=== PATIENT | female | born 1945 | race Caucasian/White ===

== ENCOUNTER 2017-05-18 08:02 | Emergency (ER) | payer MEDICARE ==
[~2017-05-18] VITALS: Ht 170.2 cm; Wt 59.6 kg
[~2017-05-18 08:02] MED LIST: ASPI81CT89 PO; ATEN50TA2 PO; CARV12.5 PO; DIVA250E1 PO; FURO-572 PO; OXYC5TAB4 PO; SIMV10TA6 PO; SYN.05 PO; TRAZ-289 PO; VALP-22 PO; VOL25 PO; [UNRECOGNIZED DRUG - CODE] TD
[2017-05-18 08:45] VITALS: BP 122/87
--- NOTE | 2017-05-18 08:54 | NUR ---
PATIENT TO OF 1
--- NOTE | 2017-05-18 09:00 | NUR ---
PATIENT PRESENTS TO ED WITH C/O BURNING URINATION 02/24 WITH LOWER MID ABD PAIN X 1 MONTH;HX OF PACEMAKER, RT SHOULDER SURGERY;RX OF CLONIDINE, DEVALPROEX, MAPAP, SENNA, BENAZEPRIL, AMIODARON, PROAIR, DIVALPROEX SODIUM, TRAMADOL, LORAZEPAM, TRAZODONE, RANITIDINE, MELOXICAM, CARVEDILOL, SIMVASTATIN.DENIES N/V/D; SKIN IS PINK/WARM/DRY; AAOX4 WITH EVEN AND STEADY GAIT; LUNGS CLEAR BL; HR EVEN AND REGULAR; PT DENIES ANY FEVER, CP, SOB, OR COUGH AT THIS TIME; PATIENT POSITIONED FOR COMFORT; HOB ELEVATED; BEDRAILS UP X2; BED DOWN. ER MD MADE AWARE OF PT STATUS.
[2017-05-18 09:32] VITALS: BP 118/74
--- NOTE | 2017-05-18 09:32 | NUR ---
Patient discharged with v/s stable. Written and verbal after care instructions given and explained. Patient alert, oriented and verbalized understanding of instructions. Ambulatory with steady gait. All questions addressed prior to discharge. ID band removed. Patient advised to follow up with PMD. Rx of CIPRO AND PYRIDIUM given. Patient educated on indication of medication including possible reaction and side effects. Opportunity to ask questions provided and answered.
== END 2017-05-18 09:32 | disposition home or self-care (01) ==
LOC: MED 08:02
DX: N39.0 Urinary tract infection, site not specified (principal); Z95.0 Presence of cardiac pacemaker
CPT/HCPCS: 81002; 99283

== ENCOUNTER 2019-07-24 21:49 | Emergency (ER) | payer MEDICARE ==
[~2019-07-24] VITALS: Ht 175.3 cm; Wt 61.2 kg
[~2019-07-24 21:49] MED LIST changes: +ASPI-1822 PO; -ASPI81CT89 PO; -SIMV10TA6 PO; +SIMV10TA92 PO; -TRAZ-289 PO; +TRAZ-471 PO
--- NOTE | 2019-07-24 21:52 | NUR ---
PT SKYLAR BLS. TAKEN TO BED 10
[2019-07-24 21:56] VITALS: BP 148/55
--- NOTE | 2019-07-24 22:00 | NUR ---
PT BIBA S/P FALL +LOC. SMALL LAC TO R EYEBROW, BRUISING ON R ARM. C/O DIZZINESS AND LIGHTHEADEDNESS. DENIES BASURTO. C/O CHRONIC PAIN TO R HIP AND BACK. DENIES NEW PAIN AFTER FALL. PERRLA. WEAK UPON STANDING. VSS. PLACED ON BEDPAN ENCOURAGED TO URINATE. WILL CONTINUE TO MONITOR.
--- NOTE | 2019-07-24 22:46 | NUR ---
Dr. Dewitt examining patient.
--- NOTE | 2019-07-24 23:38 | NUR ---
PT TAKEN TO CT
--- NOTE | 2019-07-25 00:04 | NUR ---
PT RETURN FROM CT
--- NOTE | 2019-07-25 00:30 | NUR ---
PT CLEARED TO BE DISCHARGED BY MD; TRANSPORTATION UNAVAILABLE TO HER FACILITY UNTIL 1030AM. WILL CONTINUE TO MONITOR.
--- NOTE | 2019-07-25 02:30 | NUR ---
PT URINATED IN BEDPAN. VSS. NO NEEDS AT THIS TIME. WILL CONTINUE TO MONITOR.
--- NOTE | 2019-07-25 04:30 | NUR ---
PT REQUESTED TO URINATE IN BEDPAN. VSS. NO NEEDS AT THIS TIME. WILL CONTINUE TO MONITOR.
--- NOTE | 2019-07-25 06:00 | NUR ---
PT REQUESTED TO URINATE WITH BEDPAN. VSS. NO NEEDS AT THIS TIME. WILL CONTINUE TO MONTIOR.
--- NOTE | 2019-07-25 07:12 | NUR ---
ASSUMED CARE OF PT FROM MANJIT GARCIA.
[2019-07-25 10:29] VITALS: BP 162/74
--- NOTE | 2019-07-25 10:29 | NUR ---
Patient discharged with v/s stable. Written and verbal after care instructions given and explained. Patient verbalized understanding. Wheel Chair Assisted with to assisted. All questions addressed prior to discharge. Advised to follow up with PMD.
== END 2019-07-25 10:11 ==
LOC: MED 21:49
DX: M25.511 Pain in right shoulder (principal); R03.0 Elevated blood-pressure reading, without diagnosis of hypertension; F17.210 Nicotine dependence, cigarettes, uncomplicated; Z95.0 Presence of cardiac pacemaker; Z79.899 Other long term (current) drug therapy; Z79.82 Long term (current) use of aspirin; W19.XXXA Unspecified fall, initial encounter; Y93.89 Activity, other specified; Y92.89 Other specified places as the place of occurrence of the external cause; Y99.8 Other external cause status
CPT/HCPCS: 70450; 70486; 73030; 99285

== ENCOUNTER 2019-08-12 12:02 | Emergency (ER) | payer MEDICARE ==
[~2019-08-12] VITALS: Ht 170.2 cm; Wt 54.4 kg
[2019-08-12 12:08] VITALS: BP 133/56
[2019-08-12 13:20] LABS: BASOPHILS # (AUTO) 0.1 K/uL (0.00-0.22); BASOPHILS % (AUTO) 0.7 % (0.0-2.0); EOSINOPHILS % (AUTO) 0.3 % (0.0-4.0); HEMATOCRIT 37.8 % (36-48); HEMOGLOBIN 12.4 g/dL (12.0-16.0); LYMPHOCYTES # (AUTO) 0.9 K/uL (2.5-16.5); LYMPHOCYTES % (AUTO) 10.8 % (20.5-51.1); MEAN CORPUSCULAR HEMOGLOBIN 30 pg (27-31); MEAN CORPUSCULAR HGB CONC 33 g/dL (33-37); MEAN CORPUSCULAR VOLUME 92.7 fL (80-94); MONOCYTES # (AUTO) 0.7 K/uL (0.8-1.0); MONOCYTES % (AUTO) 8.4 % (1.7-9.3); NEUTROPHILS # (AUTO) 6.5 K/uL (1.8-7.7); NEUTROPHILS % (AUTO) 79.8 % (42.2-75.2); PLATELET COUNT (AUTO) 242 K/uL (140-450); RED BLOOD CELL COUNT(AUTO) 4.08 MIL/uL (4.20-5.40); RED CELL DISTRIBUTION WIDTH 15.4 % (11.6-13.7); WHITE BLOOD COUNT (AUTO) 8.1 K/uL (4.8-10.8)
[2019-08-12 13:49] LABS: ACETAMINOPHEN < 0.5 ug/ml (10-30); ALBUMIN 3.1 g/dL (3.4-5.0); ANION GAP 16.1 (8-16); ASPARTATE AMINOTRANSFERASE 17 U/L (15-37); CARBON DIOXIDE 25.9 mmol/L (21-32); CHLORIDE 104 mmol/L (98-107); CREATININE 1.8 mg/dL (0.6-1.3); GLUCOSE 115 mg/dL (74-106); SODIUM SERUM 141 mmol/L (136-145); TOTAL BILIRUBIN 0.7 mg/dL (0.0-1.0); UREA NITROGEN, BLOOD 43 mg/dL (7-18)
[2019-08-12 13:50] LABS: APPEARANCE,URINE SL CLOUDY (CLEAR); BILIRUBIN,URINE NEGATIVE (NEGATIVE); BLOOD, URINE 2+ (NEGATIVE); COLOR,URINE DARK YELLOW (YELLOW); LEUKOCYTE ESTERASE ,URINE 3+ (NEGATIVE); NITRITE, URINE POSITIVE (NEGATIVE); UGLUCOSE NEGATIVE (NEGATIVE)
[2019-08-12] MEDS ORDERED: NACL 0.9% 1,000 ML IV ONE (14:10)
[2019-08-12 14:13] LABS: RBC,URINE 80-100 /HPF (0-5); WBC,URINE 80-100 /HPF (0-5)
[2019-08-12] MEDS ORDERED: cefTRIAXone 1,000 MG VIAL ONE (14:15)
[2019-08-12 20:12] VITALS: BP 138/56
== END 2019-08-12 20:14 | disposition short-term general hospital (02) ==
LOC: MED 12:02
DX: S42.031A Displaced fracture of lateral end of right clavicle, initial encounter for closed fracture (principal); S52.591A Other fractures of lower end of right radius, initial encounter for closed fracture; E86.0 Dehydration; R53.1 Weakness; N39.0 Urinary tract infection, site not specified; F03.90 Unspecified dementia, unspecified severity, without behavioral disturbance, psychotic disturbance, mood disturbance, and anxiety; Z95.0 Presence of cardiac pacemaker; Z79.82 Long term (current) use of aspirin; Z79.899 Other long term (current) drug therapy; W19.XXXA Unspecified fall, initial encounter; Y93.89 Activity, other specified; Y92.89 Other specified places as the place of occurrence of the external cause; Y99.8 Other external cause status
CPT/HCPCS: 29105; 36415; 70450; 71045; 73030; 73110; 80053; 81001; 82550; 83605; 84484; 85025; 87040; 87086; 87186; 93005; 96361; 96365; 99285; G0480; J0696; J7030

== ENCOUNTER 2020-03-21 11:46 | Emergency (ER) | payer MEDICARE, SELFPAY ==
[~2020-03-21] VITALS: Ht 167.6 cm; Wt 49.0 kg
[2020-03-21 11:48] VITALS: BP 120/50
[2020-03-21] MEDS: IBUPROFEN 600 MG TAB PO ONE (12:01)
[2020-03-21] MEDS: HYDROcodone/APAP 5/325 MG 1 TAB TAB PO ONE (12:02)
[2020-03-21 12:14] LABS: BASOPHILS % (AUTO) 0.6 % (0.0-2.0); EOSINOPHILS # (AUTO) 0.1 K/uL (0-0.4); EOSINOPHILS % (AUTO) 2.3 % (0.0-4.0); HEMATOCRIT 38.8 % (36-48); HEMOGLOBIN 12.9 g/dL (12.0-16.0); LYMPHOCYTES # (AUTO) 1.4 K/uL (2.5-16.5); LYMPHOCYTES % (AUTO) 22.2 % (20.5-51.1); MEAN CORPUSCULAR HEMOGLOBIN 30 pg (27-31); MEAN CORPUSCULAR HGB CONC 33 g/dL (33-37); MEAN CORPUSCULAR VOLUME 91.6 fL (80-94); MONOCYTES # (AUTO) 0.5 K/uL (0.8-1.0); MONOCYTES % (AUTO) 7.7 % (1.7-9.3); NEUTROPHILS # (AUTO) 4.1 K/uL (1.8-7.7); NEUTROPHILS % (AUTO) 67.2 % (42.2-75.2); PLATELET COUNT (AUTO) 237 K/uL (140-450); RED BLOOD CELL COUNT(AUTO) 4.24 MIL/uL (4.20-5.40); RED CELL DISTRIBUTION WIDTH 14.3 % (11.6-13.7); WHITE BLOOD COUNT (AUTO) 6.1 K/uL (4.8-10.8)
[2020-03-21] MEDS ORDERED: IBUP-2213 PO (12:21)
[2020-03-21] MEDS ORDERED: ATOR10TA PO (12:21)
[2020-03-21] MEDS ORDERED: ZOLP5TAB1 PO (12:21)
[2020-03-21] MEDS ORDERED: LEVO0.124 PO (12:21)
[2020-03-21] MEDS ORDERED: PSYL0.5212 PO (12:21)
[2020-03-21] MEDS ORDERED: TRAZ-343 PO (12:21)
[2020-03-21] MEDS ORDERED: CLON0.1T42 PO (12:21)
[2020-03-21] MEDS ORDERED: ALBU0.0912 IH (12:21)
[2020-03-21] MEDS ORDERED: CARV25TA PO (12:21)
[2020-03-21] MEDS ORDERED: CLON1TAB PO (12:21)
[2020-03-21] MEDS ORDERED: MEGE40SU5 PO (12:21)
[2020-03-21] MEDS ORDERED: NAPR-54 PO (12:21)
[2020-03-21] MEDS ORDERED: BENA20TA PO (12:21)
[2020-03-21] MEDS ORDERED: DIVA500T1 PO (12:21)
[2020-03-21] MEDS ORDERED: ACET-2619 PO (12:21)
[2020-03-21] MEDS ORDERED: SENN-72 PO (12:21)
[2020-03-21] MEDS ORDERED: TRAM50TA1 PO (12:21)
[2020-03-21] MEDS ORDERED: LORA10TA19 PO (12:21)
[2020-03-21] MEDS ORDERED: AMLO10TA PO (12:21)
[2020-03-21] MEDS ORDERED: OMEP20EC11 PO (12:21)
[2020-03-21] MEDS ORDERED: MELO15TA11 PO (12:21)
[2020-03-21] MEDS ORDERED: ESCI10TA PO (12:21)
[2020-03-21 12:29] LABS: ALBUMIN 3.8 g/dL (3.4-5.0); ANION GAP 16.4 (8-16); ASPARTATE AMINOTRANSFERASE 14 U/L (15-37); CARBON DIOXIDE 24.5 mmol/L (21-32); CHLORIDE 100 mmol/L (98-107); CREATININE 0.8 mg/dL (0.6-1.3); GLUCOSE 98 mg/dL (74-106); POTASSIUM 3.9 mmol/L (3.5-5.1); SODIUM SERUM 137 mmol/L (136-145); TOTAL BILIRUBIN 0.5 mg/dL (0.0-1.0); UREA NITROGEN, BLOOD 11 mg/dL (7-18)
[2020-03-21 13:26] LABS: APPEARANCE,URINE HAZY (CLEAR); BILIRUBIN,URINE NEGATIVE (NEGATIVE); BLOOD, URINE 2+ (NEGATIVE); COLOR,URINE YELLOW (YELLOW); LEUKOCYTE ESTERASE ,URINE 1+ (NEGATIVE); NITRITE, URINE NEGATIVE (NEGATIVE); UGLUCOSE NEGATIVE (NEGATIVE)
[2020-03-21] MEDS: LORazepam 0.5 MG TAB PO ONE (13:35)
[2020-03-21 13:52] LABS: RBC,URINE 20-50 /HPF (0-5)
[2020-03-21 17:49] VITALS: BP 120/58
== END 2020-03-21 17:51 ==
LOC: MED 11:46
DX: U07.1 COVID-19 (principal); I51.89 Other ill-defined heart diseases; Z79.899 Other long term (current) drug therapy; Z95.0 Presence of cardiac pacemaker
CPT/HCPCS: 36415; 71045; 80053; 81001; 82550; 83605; 85025; 87040; 87086; 87426; 99285; Q0092; 99284